=== PATIENT | male | born 2005 | race Caucasian/White ===

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

== ENCOUNTER 2025-02-18 07:32 | Outpatient (CLI) | payer BC, SELFPAY ==
--- OUTSIDE RECORDS SUMMARY | 2025-01-25 11:00 | XMS_ITS ---
Author Organization [facility] Address [address] [facility] [address] [place] [id number] Care Team Providers Care Surveyor Rod Helper Name Role Phone Kiana Cardenas Primary Care Provider Anayeli Timmy Unavailable [phone] Allergies No Known Allergies REASON FOR VISIT Re-establish care and headaches Medications Medication SIG (Take, Route, Frequency, Duration) Notes Start Date End Date Status Medrol 4 MG as directed Orally 01/25/2025 Active Qulipta 60 MG 1 tablet Orally Once a day Active Problems Problem Type SNOMED Code ICD Code Onset Dates Problem Status W/U Status Risk Notes Problem Migraine (25224474) Migraine (G43.909) Active confirmed Vital Signs Weight 158 lbs 01/25/2025 Blood pressure systolic 110 mm Hg 01/26/20 25 Blood pressure diastolic 70 mm Hg 025 Heart Rate 74 /min 01/25/2025 Height 60 in 01/25/2025 BMI 30.85 kg/m2 01/25/2025 Encounters Encounter Location Date Provider Diagnosis [facility] [address] [facility] [address] [place] [id number] 01/25/2025 Kiana Cardenas Migraine G43. 909 Assessments Encounter Date Diagnosis (ICD Code) Assessment Notes Treatment Notes Treatment Clinical Notes Section Notes 01/25/2025 Migraine (ICD-10 - G43.909) He is provide Qulipta samples #8 Plan Of Treatment Medication Medication Name Sig Start Date Stop Date Notes Medrol 4 MG as directed Orally 01/25/2025 Qulipta 60 MG 1 tablet Orally Once a day 01/26/2025 Treatment Notes Assessment Notes Migraine He is provide Qulipt a samples #8 Next Appt Details Follow Up: 1 Week,Chivo paul n: Progress Notes * Landen PURIDOB:2005 (20 yo M)Acc No.[id number]:01/25/2025 Progress Notes Patient: Landen WAYNE Provider: Kiana Cardenas M.D. :2005 A ge:20 Y S ex:Male Date:01/25/2025 Address:[facility] [address], [place], [id number] Subjective: * Chief Complaints: * 1 . Re-establish care and headaches. * HPI: H PI: Patient is here today for r e-establish with us . N eurology: His chief complaint today is a headache that has been present for the past 2 weeks. It waxes and wanes some through the day but never completely goes away. Typically gets worse in the evening and is somewhat better in the morning. Initially was seen at the [facility] with his complaint and was treated for sinus infection although had no symptoms of congestion, drainage or fever. There was no improvement with treatment. He does have a history of migraines which occur very rarely. Description is classic with visual prodrome, headache, photophobia, and nausea with vomiting. These typically resolve within 24 hours. * ROS: D ERMATOLOGY: no R jose luis. n o H geena. G ASTROENTEROLOGY: no N ausea. n o V omiting. n o D iarrhea.? U ROLOGY: no B lood in urine. n o F requent urination. ? * Medical History: d elv C section. * Surgical History: n one . * Hospitalization/Major Diagno stic Procedure: P rematurity . * Family History: F ather: alive. M other: alive. P aternal Grand Father: alive. P aternal Grand Mother: alive. M aternal Grand Father: alive. M aternal Grand Mother: alive. 1 brother(s) - healthy. . * Social History: C URRENT TOBACCO USE S moking Status: Patient does NOT smoke, Second hand smoke exposure: Yes, number of years exposed to second hand smoke: 7. C affeine: yes, coffee one a day. Home smoke detector use: yes. Marital Status: Single. Past smoking status: no. Occup. exposure: no. Alcohol: no. Travel ouside [place]: no. * Medications: N one * Allergies: N .K.D.A. Objective: * Vitals: W t: 158, Temp: 98.1, BP: 110/70, HR: 74, Nurse: pe, Ht: 60, BMI:30.85. * Examination: G eneral Examination: General Appearance: N AD. H EENT: s clera and conjunctiva clear, PERRLA, TM's normal, translucent. Nares patent. Throat is unremarkable.. N donnell: s upple,no lymphadenopathy. No meningismus. H eart: R SR. L ungs: c lear to auscultation. N eurologic Exam: n ormal cranial nerves II-XII sensory & motor WNL, DTR 2 plus. Assessment: * Assessment: 1. [facility] G43.909 (Primary) Plan: * Treatment: * Procedure Codes: 1 036F TOBACCO NON-USER, 3074F SYST BP LT 130 MM HG, 3078F DIAST BP < 80 MM HG * Follow Up: 1 Week,prn * Images: Billing Information: * Visit Code: 53187 Office Visit, New Pt., Level 3. * Procedure Codes: 1036F TOBACCO NON-USER. 3074F SYST BP LT 130 MM HG. 3078F DIAST BP < 80 MM HG. * Electronic signature of Kiana Cardenas MD on 02/18/2025 at 07:34 AM EST Sign off status: Pending * Provider: Kiana Cardenas M.D. Date: Generated for Siobhan giron/Navya/Vania on: 04/20/2024 07:34 AM EST History and Physical Notes * HPI (History of Present Illness) Category Sub-Category Detail Notes Category Not es HPI Patient is here today for re-establish wi th us Examination Category Sub-Category Detail Notes Category Not es General Examination HEENT: sclera and c onjunctiva clear, PERRLA, TM's normal, translucent. Nares patent. Throat is unremarkable. Heart: RSR Lungs: clear to auscultatio n General Appearance: NAD Neurologic Exam: normal cranial nerve s II-XII sensory & motor WNL, DTR 2 plus Neck: supple, no lymphaden opathy. No meningismus
--- OUTSIDE RECORDS SUMMARY | 2025-02-03 10:00 | XMS_ITS ---
Author Organization [facility] Address [address] [facility] [address] [facility] [address] [place] [phone] Care Team Providers Care Lead Etl Developer Name Role Phone Kiana Cardenas Primary Care Provider [phone] Anayeli Timmy Unavailable [phone] Allergies No Known Allergies REASON FOR VISIT Headaches Medications Medication SIG (Take, Route, Fr equency, Duration) Notes Start Date End Date Status Amitriptyline HCl 25 MG 1 tablet at bedt karon Orally Once a day; Duration: 30 day(s) 02/03/2025 Active Problems Problem Type SNOMED Code ICD Code Onset Dates Problem Status W/U Status Risk Notes Problem New daily persistent headache ([id number] 5) Headache, new daily persistent (NDPH) (G44.52) Active confirmed Vital Signs Weight 153 lbs 02/03/2025 Blood pressure systolic 112 mm Hg 02/04/20 25 Blood pressure diastolic 70 mm Hg 025 Heart Rate 68 /min 02/03/2025 Height 60 in 02/03/2025 BMI 29.88 kg/m2 02/03/2025 Encounters Encounter Location Date Provider Diagnosis [facility] [address] [facility] [address] [place] [id number] 02/03/2025 Kiana Cardenas Headache, new daily persistent (NDPH) G44.52 Assessments Encounter Date Diagnosis (ICD Code) Assessment Notes Treatment Notes Treatment Clinical Notes Section Notes 02/03/2025 Headache, new daily persistent (NDPH) (ICD-10 - G44.52) Plan Of Treatment Medication Medication Name Sig Start Date Stop Date Notes Amitriptyline HCl 25 MG 1 tablet at bedt karon Orally Once a day; Duration: 30 day(s) 02/03/2025 Pending Test Test Name Order Date CT Scan : Head w/o contrast 02/03/2025 Next Appt Details Follow Up: via phone to repo rt test results, Reason: Progress Notes * Landen PURIDOB:2005 (20 yo M)Acc No.[id number]:02/03/2025 Progress Notes Patient: Landen WAYNE Provider: Kiana Cardenas M.D. :2005 A ge:20 Y S ex:Male Date:02/03/2025 Address:[address] , [place], [id number] Subjective: * Chief Complaints: * 1 . Headaches. * HPI: N eurology: Landen returns with persistnet daily headaches that seem to be getting a little worse. Onset was fairly abrupt 3 weeks ago and since then, the headaches wax and wane through the day but never completely go away. He had no relief with the steroid pack and Ubrelvy. He denies sleep disturbance. No visual complaints or dizziness. Only mild nasal congestion. No nausea or vomiting. He has tried to stay well-hydrated. * ROS: D ERMATOLOGY: no R jose luis. n o H geena. G ASTROENTEROLOGY: no N ausea. n o V omiting. n o D iarrhea.? U ROLOGY: no D ifficulty urinating. n o B lood in urine. * Medical History: d elv C section. [...] no. Travel ouside [place]: no. * Medications: D iscontinued Medrol 4 MG Tablet Therapy Pack as directed Orally , Discontinued Qulipta 60 MG Tablet 1 tablet Orally Once a day , Medication List reviewed and reconciled with the patient * Allergies: N .K.D.A. Objective: * Vitals: W t: 153, Temp: 98.1, BP: 112/70, HR: 68, Nurse: pe, Ht: 60, BMI:29.88. * Examination: G eneral Examination: E xam unchanged. Assessment: * Assessment: 1. H eamele new daily persistent (NDPH) - G44.52 (Primary) Plan: * Treatment: * Follow Up: v ia phone to report test results * Images: Billing Information: * Visit Code: 91345 Office Visit, Est Pt., Level 3. * Procedure Codes: * Electronic signature of Kiana Cardenas MD on 02/18/2025 at 07:34 AM EST Sign off status: Pending * Provider: Kiana Cardenas M.D. Date: 04/05/2024 Generated for Siobhan giron/Navya/Vania on: 04/20/2024 07:34 AM EST History and Physical Notes * HPI (History of Present Illness) Category Sub-Category Detail Notes Category Not es Neurology Landen returns wit h persistnet daily headaches that seem to be getting a little worse. Onset was fairly abrupt 3 weeks ago and since then, the headaches wax and wane through the day but never completely go away. He had no relief with the steroid pack and Ubrelvy. He denies sleep disturbance. No visual complaints or dizziness. Only mild nasal congestion. No nausea or vomiting. He has tried to stay well-hydrated. Examination Category Sub-Category Detail Notes Category Not es General Examination Exam unc hanged
--- OUTSIDE RECORDS SUMMARY | 2025-02-18 07:34 | XMS_ITS | Patient Health Record ---
[facility] [address] [facility] [address] [place] [phone] Care Team Providers Care Rn School Name Role Phone Kiana Cardenas Primary Care Provider Timmy Guadalupe Unavailable [phone] Allergies No Known Allergies Results Component Value Reference Range Notes INOCENTE Reviewed date:01/25/2025 10:02:24 AM Interpretation: Performing Lab: Notes/Report: Reason For Referral No Information Medications Medication SIG (Take, Route, Fr equency, Duration) Notes Start Date End Date Status Amitriptyline HCl 25 MG 1 tablet at bedt karon Orally Once a day; Duration: 30 day(s) 02/03/2025 Active Immunizations Vaccine Route Administration Date Status Comme nts Gardasil 9 IM Intramuscular 10/29/2016 Administered Gardasil 9 IM Intramuscular 11/14/2017 Administered Hep A- Pediatric IM Intramuscular 10/29/2016 Administered Hep A- Pediatric IM Intramuscular 11/14/2017 Administered HIB VACCINE,HBOC, IM IM Intramuscular 2005 Administe red HIB VACCINE,HBOC, IM IM Intramuscular 2005 Administe red HIB VACCINE,HBOC, IM IM Intramuscular 2005 Administe red HIB VACCINE,HBOC, IM IM Intramuscular 05/21/2006 Administe red IPV IM Intramuscular 01/25/2009 Administered Menactra IM Intramuscular 11/05/2016 Administered MMR SC Subcutaneous 01/25/2009 Administered MMR SC Subcutaneous 05/21/2006 Administered pediarix IM Intramuscular 2005 Administered pediarix IM Intramuscular 2005 Administered pediarix IM Intramuscular 2005 Administered PREVNAR IM Intramuscular 2005 Administered PREVNAR IM Intramuscular 2005 Administered PREVNAR IM Intramuscular 2005 Administered Tetanus Dtap-Daptacel (under 7yrs) IM Intramuscular 05/21/2006 Administered Tetanus Dtap-Daptacel (under 7yrs) IM Intramuscular 01/25/2009 Administered Tetanus Tdap-Adacel (over 7yrs) IM Intramuscular 10/29/2016 Administered Varivax SC Subcutaneous 02/12/2006 Administered Varivax SC Subcutaneous 01/25/2009 Administered Problems Problem Type SNOMED Code ICD Code Onset Dates Problem Status W/U Status Risk Notes Problem Migraine (22123094) Migraine (G43.909) Active confirmed Problem New daily persistent headache ([id number] 5) Headache, new daily persistent (NDPH) (G44.52) Active confirmed Vital Signs Heart Rate 68 /min 02/03/2025 Blood pressure diastolic 70 mm Hg 02/03/2025 Height 60 in 02/03/2025 Blood pressure systolic 112 mm Hg 02/03/2025 Weight 153 lbs 02/03/2025 BMI 29.88 kg/m2 02/03/2025 Encounters Encounter Location Date Provider Diagnosis [facility] [address] [place], [place] [phone] 01/25/2025 R Alejandro Theresa Migraine G43.909 [facility] [address] [facility] 36 [facility] [address] [place], [place] [phone] 02/03/2025 R Alejandro Theresa Headache, new daily persistent (NDPH) G44.52 Assessments Encounter Date Diagnosis (ICD Code) Assessment Notes Treatment Notes Treatment Clinical Notes Section Notes 01/25/2025 Migraine (ICD-10 - G43.909) He is provide Qulipta samples #8 02/03/2025 Headache, new daily persistent (NDPH) (ICD-10 - G44.52) Plan Of Treatment Pending Test Test Name Order Date CT Scan : Head w/o contrast 02/03/2025 Insurance Providers Payer Name Payer Address Payer Phone Subscriber Number Group Number Insured Name Patient Relationship to Insured Coverage Start Date Coverage End Date [employer] [address] [place] [address] [id number] Landen Younger Self - patient is the insured Medical (General) History Medical History History ICD Code delv C section Surgical History Surgery Date(Month/Year) none Hospitalization History Reason Date(Month/Year) Prematurity
--- NOTE | 2025-02-18 07:35 | CT_ITS ---
FINAL REPORT TECHNIQUE: Axial CT images were performed through the head. Coronal and sagittal reformatted images were submitted. This study was performed with techniques to keep radiation doses as low as reasonably achievable (ALARA). Individualized dose reduction techniques using automated exposure control or adjustment of mA and/or kV according to the patient's size were employed. CLINICAL HISTORY: ONSET OF NEW PERSISTANT HEADACHES COMPARISON: None FINDINGS: CT HEAD: The ventricles are normal in size. There is no evidence of hemorrhage. There is no mass or edema identified. There is no abnormal extra-axial fluid seen. There are minimal changes of chronic ethmoid sinusitis. IMPRESSION: No acute intracranial process. Reviewed, Interpreted and Dictated by Kendall Locke MD Transcribed by Yvrose Scruggs Authenticated and [facility]
== END 2025-02-18 23:59 | disposition home or self-care (01) ==
LOC: RAD 07:33
PROVIDERS: PCP Family Medicine; Visit Provider Family Medicine
DX: G44.52 New daily persistent headache (NDPH) (principal)
CPT/HCPCS: 70450